=== PATIENT | male | born 1955 | race Caucasian/White ===

== ENCOUNTER → 2017-05-25 | Outpatient (CLI) | payer BC ==
[~2017-05-25] MED LIST: ASPIR 8181 MG; NAPROSYN500 MG PO; NORCO 5-325 TA1 EACH PO
== END ==
LOC: M.MRI 13:03
DX: S66.811A Strain of other specified muscles, fascia and tendons at wrist and hand level, right hand, initial encounter (principal); M25.421 Effusion, right elbow; M77.11 Lateral epicondylitis, right elbow; M77.01 Medial epicondylitis, right elbow; M19.021 Primary osteoarthritis, right elbow; W19.XXXA Unspecified fall, initial encounter; Y93.89 Activity, other specified; Y92.89 Other specified places as the place of occurrence of the external cause; Y99.8 Other external cause status

== ENCOUNTER → 2018-03-20 | Outpatient (CLI) | payer BC | LOC: M.MRI 08:03 | DX: M47.896 Other spondylosis, lumbar region (principal) ==

== ENCOUNTER → 2018-04-11 | Outpatient (CLI) | payer BC ==
[~2018-04-11] MED LIST changes: +DAILY VITAMIN1 EAC6 PO; +DOXYCYCLINE 10100 M1 PO; +FISH OIL 1,001000 M2 PO; +MAGOX 400400 MG PO; +PROBIOTIC1 EAC1 PO
--- NOTE | ~2018-04-11 | PAINCON ---
[address] [address] PAIN MANAGEMENT CONSULTATION Name: YULISA AGGARWAL Room: [facility] BooneHarshaKristinHarsha#: [id number] Admission: 04/11/18 Attend Phys: Ameya Workman MD Discharge: Date of : 55 Report #: [id number] THIS REPORT FOR: //name// CC: Lamin Workman DATE OF SERVICE: 04/11/2018 HISTORY: The patient is a 62-year-old white male who has been referred to the pain clinic for evaluation of back and leg pain. He has had some problems with his back and neck in the past. Pain has been problematic since 2016. He does have a form. He continues to work on his form. In 2008, he was suffering from cervical problems. As a result of cervical myelopathy, he underwent a cervical laminectomy. The patient still has problems with urination as a result of that incident. At this juncture, he is having pain that involves his low back, hips, thighs and continues to radiate down into his back. He finds the heating pads have been helpful. He has tried [id number] nonsteroidal anti-inflammatory medications. He found upon use of opioid medications and states he "does not want to go down that road." Notes his pain is worse when he is standing, bending and increases as time goes on. Notes the pain improves when he is resting. Describes his pain as continuous, burning, aching, stabbing and rates it as a 5/10 today. As a result of the chronic problem from cervical myelopathy. He continues to straight cath himself. His bladder function never returned. ALLERGIES: No known drug allergies. MEDICATIONS: Doxycycline 100 mg b.i.d., taking this for parasite, aspirin 81 mg, multivitamin, probiotic with lactobacillus, and multivitamin. PAST MEDICAL HISTORY: Heart disease, had septal defect as a child. Still has a slight heart murmur, cervical myelopathy with continued problems with micturition required straight cath. PAST SURGICAL HISTORY: Appendectomy in 1997. Bunionectomy 2006, hernia repair 2008, cervical laminectomy in 2008, torn right tendon after a fall from the tractor. 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 REVIEW OF SYSTEMS: Generally good health, fatigue and weakness, wears glasses, notes about movement changes, difficulty with micturition, musculoskeletal and joint pain with stiffness, weakness of the muscles and joints with cramping in the back area, numbness and tingling [place] [address] PAIN MANAGEMENT CONSULTATION Name: YULISA AGGARWAL Room: [facility]#: [id number] Admission: 04/11/18 Attend Phys: Ameya Workman MD Discharge: Date of : 55 Report #: [id number] LABORATORY DATA: 1. MRI of the lumbar spine dated 08/19/2008. There is a congenitally narrowed lumbar spinal canal. There is moderate degenerative disk and mild degenerative facet joint changes throughout the lumbar spine. There is mild disk bulging noted particularly at L1-L2, L2-L3 and L3-L4. 2. No evidence for spondylolysis. 3. AP diameter of the lumbar spinal canal 10 mm at L1-L2, 9 mm at L2-L3, 8 mm at L3-L4, 10 mm at L4-L5 and 11 mm of L5-S1. There is also marked foraminal stenosis bilaterally. This appears most marked on the right side at L3-L4. MRI of the lumbar spine dated 03/20/2018 at L3-L4, there is moderate to severe disk desiccation and broad-based posterior disk bulge with narrowing of the thecal sac to 8.5 mm. There is moderate to severe/severe bilateral facet arthrosis and spurring resulting in right greater than left subarticular zone stenosis. There is foraminal disk bulging and facet spurring resulting in moderate to severe/severe right neural foraminal stenosis. Effacement of the exiting L3 nerve root. There is moderate medial left neural foraminal stenosis with mild effacement of the exiting left L3 nerve root. 4. L4-L5, there is severe disk desiccation with broad-based posterior disk bulge and effacement, and indents the ventral thecal sac. There is narrowing of the thecal sac to 6.5 mm consistent with severe thecal sac stenosis. There is severe bilateral subarticular zone stenosis due to severe bilateral facet arthrosis and spurring. There is no significant thickening of the ligamentum flavum. There is foraminal disk bulging and facet spurring resulting in [id number] right and severe medial left neural foraminal stenosis with effacement of the exiting L4 nerve root. At L5-S1, there is mild disk desiccation with mild diffuse disk bulge, which approaches the descending S1 nerve without evidence of impingement or displacement. PAIN CLINIC ASSESSMENT/PQRS: 1. History of osteoarthritis. The patient has some arthritic changes in his neck as well as the low back area. He has not been treated for rheumatoid arthritis. 2. Height 5 feet 9 inches, weight 183 pounds, BMI is 27. 3. Vital signs: Blood pressure 118/75, heart rate 75, respiratory rate 16, room air saturation 95%, and temperature 98.2. 4. Pain intensity 3-4/10. 5. Fall history: The patient has not fallen in the last 3 months. 6. Blood thinner: The patient is not on a blood thinning medication. 7. Hypertension. The patient is not being treated for hypertension. 8. Opioids greater than 6 weeks. The patient is not on chronic opioid medication. 9. Risk assessment tool, low for opioid use. 10. Functional assessment . 11. Recreational drug use. The patient [place] [address] PAIN MANAGEMENT CONSULTATION Name: YULISA AGGARWAL Room: [facility]#: [id number] Admission: 04/11/18 Attend Phys: Ameya Workman MD Discharge: Date of : 55 Report #: [id number] 12. Tobacco: The patient denies use of tobacco. 13. Alcohol: The patient denies frequent use of alcoholic beverages. PHYSICAL EXAMINATION: GENERAL: The patient is a well-developed, well-nourished white male. Appears his stated age. He is alert and oriented x 3. His affect is appropriate. Speech is fluent. HEENT: Normocephalic, atraumatic. Extraocular eye muscles intact. Sclerae nonicteric. Mucous membranes are moist. 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 Deep tendon reflexes +1 has complained of pain in his low back area with pain radiating down to the posterior portion of his legs and anterior portion of his legs bilaterally. Reyes's sign is negative. Anterior and posterior spring tests are negative. NECK: Supple. Midline trachea. Normal cervical range of motion, previous midline cervical incision well-healed, low back area without significant scoliosis, kyphosis or lordosis. Sensation grossly intact to light touch, pinprick, proprioception in upper and lower extremities. IMPRESSION: 1. Low back pain with radiation down into the anterior as well as posterior portion of the leg with history of spinal stenosis. 2. History of cervical myelopathy in the past with continued difficulty with micturition, requires straight cathing. 3. Lumbar stenosis. 4. Lumbar radiculopathy. 5. Lumbar spondylosis. 6. Degeneration of lumbar intervertebral disk. RECOMMENDATIONS: We discussed treatment options with the patient. Risks and benefits of an epidural steroid injection were discussed. Possible complications of the procedure, which could include but are not limited to infection, worsening of pain, no improvement in pain, bleeding, paralysis were discussed. The patient will return to the pain clinic at which time he will then undergo an epidural steroid injection. The patient will undergo the lumbar epidural steroid injections and note their efficacy. He will return to the pain clinic at which time he will consider an epidural steroid injection given he is suffering from severe central stenosis and lateral recess stenosis bilaterally at L4-L5 secondary to a combination of facet arthropathy/ligamentous hypertrophy and broad-based degenerative disk disease. By: [id number]. Crow Workman MD /nt
== END ==
LOC: M.PC 04:42
DX: M47.26 Other spondylosis with radiculopathy, lumbar region (principal); M51.16 Intervertebral disc disorders with radiculopathy, lumbar region; M48.061 Spinal stenosis, lumbar region without neurogenic claudication; M50.01 Cervical disc disorder with myelopathy, high cervical region

== ENCOUNTER → 2018-05-11 | Outpatient (CLI) | payer BC ==
--- NOTE | ~2018-05-11 | PAINCON ---
[address] [address] PAIN MANAGEMENT CONSULTATION Name: YULISA AGGARWAL Room: [facility] PaoloNora#: [id number] Admission: 05/11/18 Attend Phys: Ameya Workman MD Discharge: Date of : 55 Report #: [id number] THIS REPORT FOR: //name// CC: Lamin Workman DATE OF SERVICE: 05/11/2018 CHIEF COMPLAINT: Here for epidural injection. HISTORY: The patient is a 62-year-old gentleman who has been seen in the Pain Clinic. He has a history of low back pain with pain radiating down into his legs. He has been found to have spinal stenosis. He notes that he is having pain and discomfort, which is radiating down into his legs in the L4-L5 area. He has some low back pain, left hip pain, thigh pain and rates his pain as a 2-3. It increases with activity. Finds that ____ p.r.n. is helpful. He has returned today for an epidural steroid injection. Continues to use a heating pad. Notes that standing can be problematic. Declines use of opioid medications at this point. States he "does not want to go down that road." The patient has returned today for an epidural steroid injection. As you may recall, he has had cervical stenosis and pain in the cervical area in the past. ALLERGIES: No known drug allergies. CURRENT MEDICATIONS: Doxycycline 100 mg b.i.d. Aspirin 81 mg, multivitamins. Probiotic with lactobacillus. PAIN CLINIC ASSESSMENT/PQRS: 1. History of osteoarthritis. The patient has some arthritic changes in his neck as well as his low back area. He has not been treated for rheumatoid arthritis. 2. Height 5 feet 9 inches, weight 184 pounds, BMI is 27.7. 3. Vital signs: Blood pressure 120/48, heart rate 83, respiratory rate 16, room air saturation 96%, temperature 98.5. 4. Pain intensity 2-3/10. 5. Fall history: The patient has not fallen in the last 3 months. 6. Blood thinner. The patient is not on a blood thinning medication. 7. Hypertension. The patient is not being treated for hypertension. 8. Opioid greater than 6 weeks. The patient is not on an opioid medication. 9. Risk assessment tool, low for opioid use. 10. Functional assessment tool . 11. Recreational use. The patient denies use of recreational drugs. 12. Tobacco: The patient denies use of tobacco. 13. Alcohol: The patient denies use of alcoholic beverages. PHYSICAL EXAMINATION: [place] [address] PAIN MANAGEMENT CONSULTATION Name: YULISA AGGARWAL Room: [facility]#: [id number] Admission: 05/11/18 Attend Phys: Ameya Workman MD Discharge: Date of : 55 Report #: [id number] GENERAL: The patient is a well-developed, well-nourished white male, appears his stated age. He is alert and oriented x 3. His affect is appropriate. Speech is slow. HEENT: Normocephalic, atraumatic. Extraocular eye muscles intact. Sclerae nonicteric. Mucous membranes are moist. NECK: Without adenopathy or JVD. He has good range of motion in the upper extremity. Muscle strength is judged to be 5/5 for the major muscle groups in the upper extremity. The patient is without significant scoliosis, kyphosis or lordosis. Has pain and discomfort in the lower portion of his back with pain that radiates down into the L4-L5 distribution on the left as well as in the right. IMPRESSION: 1. Spinal stenosis with narrowing of the thecal sac to 6.5 mm consistent with severe thecal sac stenosis at L4-L5. 2. History of cervical myelopathy in the past with continued difficulty with micturition. The patient still required straight cathing. 3. Lumbar stenosis. 4. Lumbar radiculopathy. 5. Lumbar spondylosis. 6. Degenerative lumbar intervertebral disk. RECOMMENDATIONS: We discussed treatment options with the patient. Risks and benefits of an epidural steroid injection were again reviewed. They include but are not limited to infection, worsening of pain, no improvement in pain, the patient elects to proceed. PROCEDURE NOTE: The patient was taken to the procedure area. He was assisted in getting on the examination table. His back was sterilely prepped with a Betadine solution. A 0.25% bupivacaine was infiltrated using a 21-gauge needle at the L4-L5 interspace using a midline approach. A 17-gauge Tuohy with loss of resistance technique was used to gain access to the epidural space. There was no CSF, heme or paresthesia. A total of 80 mg Depo-Medrol, 40 mg of triamcinolone and 2 mL of 0.25% bupivacaine was injected. The patient tolerated the procedure well. There were no complications. We would like to thank you for letting us participate in his care. We hope he continues to improve. By: [id number]. Crow Workman MD /hemant
== END | disposition home or self-care (01) ==
LOC: M.PC 08:30
DX: M51.16 Intervertebral disc disorders with radiculopathy, lumbar region (principal); M47.26 Other spondylosis with radiculopathy, lumbar region; M48.061 Spinal stenosis, lumbar region without neurogenic claudication; G89.29 Other chronic pain; Z98.890 Other specified postprocedural states; Z79.82 Long term (current) use of aspirin; Z87.440 Personal history of urinary (tract) infections

== ENCOUNTER → 2018-06-15 | Outpatient (CLI) | payer BC ==
--- NOTE | 2018-06-20 09:15 | PAINCON ---
[address] [address] PAIN MANAGEMENT CONSULTATION Name: YULISA AGGARWAL Room: [facility] BooneHarshaKristinHarsha#: [id number] Admission: 06/15/18 Attend Phys: Ameya Workman MD Discharge: Date of : 55 Report #: [id number] THIS REPORT FOR: //name// CC: Lamin Workman DATE OF SERVICE: 06/15/2018 CHIEF COMPLAINT: Here for epidural injection. HISTORY: The patient is a 62-year-old gentleman who has been followed in the pain clinic. He has pain and discomfort in his low back as well as down into his hips and thigh. Notes that the pain radiates down into the left hip area. As you may recall, he did have some problems with myelopathy. Continues to self cath as a result of this problem, which was about 10 years ago. He is having pain that is radiating down into his low back in the L4-L5 dermatomal distribution. He has gleaned greater than 50% improvement after the last injection. He would like to proceed with another injection today. Has noted no changes in his bowel or bladder function. Again, continues to straight cath as a result of problems approximately 10 years ago. He did have surgery to help correct the procedure, but continues to have problems with micturition. ALLERGIES: No known drug allergies. CURRENT MEDICATIONS: Doxycycline 10 mg b.i.d., aspirin 81 mg, multivitamins, probiotic with lactobacillus. PAIN CLINIC ASSESSMENT/PQRS: 1. History of osteoarthritis: The patient does have some arthritic changes in his neck as well as in his low back area. He has not been treated for rheumatoid arthritis. 2. Height 5 feet 9 inches, weight 182 pounds, BMI is 27. 3. Vital signs: Blood pressure 129/79, heart rate 74, respiratory rate 16, room air saturation 95%, temperature 98.1. 4. Pain intensity 2/10. 5. Fall history: The patient has not fallen in the last 3 months. 6. Blood thinner: The patient is not on a blood thinning medication. 7. Hypertension: The patient is not being treated for hypertension. 8. Opioid greater than 6 weeks: The patient is not being treated for opioid medication. 9. Risk assessment tool, low for opioid use. 10. Functional assessment tool is . 11. Recreational drug use. The patient denies use of recreational drugs. 12. Tobacco: The patient denies use of tobacco. 13. Alcohol: The patient [place] [address] PAIN MANAGEMENT CONSULTATION Name: YULISA AGGARWAL Room: [facility]#: [id number] Admission: 06/15/18 Attend Phys: Ameya Workman MD Discharge: Date of : 55 Report #: [id number] PHYSICAL EXAMINATION: GENERAL: The patient is a well-developed, well-nourished white male. Appears his stated age. He is alert and oriented x 3. His affect is appropriate. Speech is slow. HEENT: Normocephalic, atraumatic. Extraocular eye muscles intact. Sclerae nonicteric. Mucous membranes are moist. NECK: Without adenopathy or JVD. The patient has good range of motion of the upper extremities. Muscle strength is judged to be 5/5 for the major muscle groups in the upper extremities. The patient is without significant scoliosis, kyphosis or lordosis. The patient has some pain and discomfort in the L4-L5 dermatomal distribution with pain that is radiating down in the left as well as the right portion. IMPRESSION: 1. Spinal stenosis with narrowing of the thecal sac to 6.5 mm and consistent with severe thecal sac stenosis at L4-L5. 2. History of cervical myelopathy in the past with continued difficulty with micturition. The patient is to continue straight catheterizing. 3. Lumbar stenosis. 4. Lumbar radiculopathy. 5. Lumbar spondylosis. 6. Degenerative lumbar intervertebral disk. RECOMMENDATIONS: We discussed treatment options with the patient. Risks and benefits of an epidural steroid injection were again reviewed. Possible complications of the procedure were discussed. They could include but are not limited to infection, worsening of pain, no improvement in pain, bleeding, nerve damage, muscle paralysis. The patient elects to proceed. PROCEDURE NOTE: The patient was taken to the procedure area. A pillow was placed under his abdomen to bolster and improve positioning. Fluoroscopy using anterior, posterior as well as lateral viewing were implemented. A 17-gauge Tuohy with loss of resistance technique was used to gain access to the epidural space. There was no CSF, heme or paresthesia at the L4-L5 interspace. A midline approach was undertaken. After appropriate placement, aspiration was negative. A total of 80 mg Depo-Medrol, 40 mg triamcinolone and 2 mL of 0.25% bupivacaine was slowly injected. The patient did not have pain or discomfort during the duration of the procedure. He remained in the pain clinic for an appropriate amount of time. He will follow up in the future as needed. We would like to thank you for letting us participate in his care. We hope he continues to improve. <ELECTRONICALLY SIGNED> By: Ameya Workman MD 06/20/18 0915 [id number]. MD KEKE Mendez
== END | disposition home or self-care (01) ==
LOC: M.PC 05:25
DX: M51.16 Intervertebral disc disorders with radiculopathy, lumbar region (principal); M48.061 Spinal stenosis, lumbar region without neurogenic claudication; M47.26 Other spondylosis with radiculopathy, lumbar region; M19.90 Unspecified osteoarthritis, unspecified site; I10 Essential (primary) hypertension; Z98.890 Other specified postprocedural states; Z79.899 Other long term (current) drug therapy; Z79.82 Long term (current) use of aspirin

== ENCOUNTER → 2018-07-20 | Outpatient (CLI) | payer BC ==
[~2018-07-20] MED LIST changes: +MOBIC15 MG PO
--- NOTE | ~2018-07-20 | PAINCON ---
[address] [address] PAIN MANAGEMENT CONSULTATION Name: YULISA AGGARWAL Room: [facility] BR[facility] PaoloNora#: [id number] Admission: 07/20/18 Attend Phys: Ameya Workman MD Discharge: Date of : 55 Report #: [id number] THIS REPORT FOR: //name// CC: Lamin Workman DATE OF SERVICE: 07/20/2018 CHIEF COMPLAINT: Low back and left hip pain been problematic for years. HISTORY: The patient is a 62-year-old gentleman, who has been followed in the pain clinic because of lumbar radiculopathy. He has had pain, which radiates down into his left hip area. He has returned today indicating that his pain has become more annoying. He has undergone epidural steroid injections in the low back area and noticed that the pain in the L4-L5 area has improved. He would like to proceed with another injection. He is noticing some occasional tingling down into his left leg. He has spoken with Dr. Valerio. He may require surgery in the future. At this juncture, he would like to undergo an epidural steroid injection to help with his pain and discomfort. He feels that Naprosyn is somewhat beneficial. Overall, he has about 50% improvement in his pain with his current regimen. He rates his pain as a 2/10, which is quite annoying. CURRENT MEDICATIONS: Aspirin 81 mg, fish oil 1000 mg, doxycycline 100 mg b.i.d., lactobacillus probiotic, magnesium 400 mg, meloxicam 15 mg, multivitamin formula, and Naprosyn 500 mg p.r.n. b.i.d. when not taking meloxicam. ALLERGIES: No known drug allergies. PAIN CLINIC ASSESSMENT AND PQRS: 1. History of osteoarthritis. The patient does have some arthritic changes in his neck as well as in his low back area. He is not being treated for rheumatoid arthritis. 2. Pain intensity is 2/10. 3. Fall history: The patient has not fallen in the last 3 months. 4. Blood thinner. The patient is not being treated with a blood thinning medication. 5. Hypertension. The patient is not being treated for hypertension. 6. Opiate greater than 6 weeks. The patient is not being treated with opioid medications on a regular basis. 7. Risk assessment tool, low for opioid use. 8. Functional assessment tool, . 9. Recreational drug use. The patient denies use of recreational drugs. 10. Tobacco. The patient denies use of tobacco. 11. Alcohol. The patient denies use of alcoholic beverages. PHYSICAL EXAMINATION: [place] [address] PAIN MANAGEMENT CONSULTATION Name: YULISA AGGARWAL [id number] Admission: 07/20/18 Attend Phys: Ameya Workman MD Discharge: Date of : 55 Report #: [id number] GENERAL: The patient is a well-developed, well-nourished white male. He appears his stated age. He is alert and oriented x 3. His affect is appropriate. Speech is fluent. Height is 5 feet 9 inches, weight is 176 pounds, and BMI is 26. VITAL SIGNS: Blood pressure is 138/82, heart rate is 74, respiratory rate is 16, room air saturation is 95%, and temperature is 98.0. HEENT: Normocephalic, atraumatic. Extraocular eye muscles intact. Sclerae is nonicteric. Mucous membranes are moist. NECK: Without adenopathy or JVD. EXTREMITIES: Upper extremity muscle strength is judged to be 5/5 for the major muscle groups in the upper extremity. The patient is without significant scoliosis, kyphosis, or lordosis. The patient has pain and discomfort, which is radiating down the L4-L5 dermatomal distribution of his left leg. He has noted some discomfort in the right as well. IMPRESSION: 1. History of spinal stenosis with narrowing of the thecal sac to 6 mm and consistent with severe thecal sac stenosis at L4-L5. 2. History of cervical myelopathy in the past with continued difficulty with micturition. The patient continues to straight catheterize himself. 3. Lumbar stenosis. 4. Lumbar radiculopathy. 5. Lumbar spondylosis. 6. Degenerative lumbar intervertebral disk. RECOMMENDATIONS: We have discussed treatment options with the patient. Risks and benefits of an epidural steroid injection were discussed. Possible complications of the procedure were discussed. The patient returned to the pain clinic at which time we will consider an epidural steroid injection. He will return after his carrier give him precertification. We would like to thank you for letting us to participate in his care. We hope he continues to improve. RECOMMENDATIONS: We discussed treatment options with the patient. Risks and benefits of an epidural steroid injection were discussed. They include but are not limited to infection, worsening of pain, no improvement. He elected to proceed. PROCEDURE NOTE: The patient was taken to the procedure area. He was assisted in getting on the examination table. His back was sterilely prepped with a Betadine solution. It was allowed to dry. The anterior, posterior as well as lateral viewing are implemented using fluoroscopy. At the L4-L5 interspace, 0.25% bupivacaine was infiltrated using a 25-gauge needle. A left paramedian approach was undertaken. A 17-gauge Tuohy with loss of resistance technique was used to gain access to the epidural space. There was no CSF, heme or [facility] [address] [place] [address] PAIN MANAGEMENT CONSULTATION Name: YULISA AGGARWAL Room: [facility]#: [id number] Admission: 07/20/18 Attend Phys: Ameya Workman MD Discharge: Date of : 55 Report #: [id number] paresthesia. A total of 80 mg of Depo-Medrol, 40 mg of triamcinolone and 2 mL of 0.25% bupivacaine was injected. The patient tolerated the procedure well. There were no complications. We would like to thank you for letting us participate in his care. We hope he continues to improve. By: [id number]. Crow Workman MD /CALEB
--- NOTE | ~2018-07-20 | PROC ---
[address] [address] PROCEDURE REPORT Name: YULISA AGGARWAL Room: [facility] DEONTE SharpHarsha#: [id number] Admission: 07/20/18 Attend Phys: Ameya Workman MD Discharge: Date of : 55 Report #: [id number] THIS REPORT FOR: //name// CC: Lamin Workman DATE OF SERVICE: 07/20/2018 ADDENDUM RECOMMENDATIONS: We discussed treatment options with the patient. Risks and benefits of an epidural steroid injection were discussed. They include but are not limited to infection, worsening of pain, no improvement. He elected to proceed. PROCEDURE NOTE: The patient was taken to the procedure area. He was assisted in getting on the examination table. His back was sterilely prepped with a Betadine solution. It was allowed to dry. The anterior, posterior as well as lateral viewing are implemented using fluoroscopy. At the L4-L5 interspace, 0.25% bupivacaine was infiltrated using a 25-gauge needle. A left paramedian approach was undertaken. A 17-gauge Tuohy with loss of resistance technique was used to gain access to the epidural space. There was no CSF, heme or paresthesia. A total of 80 mg of Depo-Medrol, 40 mg of triamcinolone and 2 mL of 0.25% bupivacaine was injected. The patient tolerated the procedure well. There were no complications. We would like to thank you for letting us participate in his care. We hope he continues to improve. By: [id number]. Crow Workman MD /CALEB
== END | disposition home or self-care (01) ==
LOC: M.PC 04:45
DX: M51.16 Intervertebral disc disorders with radiculopathy, lumbar region (principal); M47.26 Other spondylosis with radiculopathy, lumbar region; M48.061 Spinal stenosis, lumbar region without neurogenic claudication; Z79.82 Long term (current) use of aspirin; Z79.899 Other long term (current) drug therapy; N39.0 Urinary tract infection, site not specified

== ENCOUNTER 2019-09-16 11:23 | Emergency (ER) | payer OTHER ==
[~2019-09-16] VITALS: Ht 175.3 cm; Wt 83.9 kg
[2019-09-16 11:52] LABS: ABSOLUTE EOSINOPHILS 0.2 thou/uL (0.0-0.7); ABSOLUTE LYMPHOCYTES 1.9 thou/uL (0.8-5.3); ABSOLUTE MONOCYTES 0.8 thou/uL (0.0-1.2); ABSOLUTE NEUTROPHILS 4.8 thou/uL (1.6-8.1); BASOPHILS 0.6 %; EOSINOPHILS 3.1 %; HEMATOCRIT 45.6 % (42.0-52.0); HEMOGLOBIN 15.7 gm/dL (14.0-18.0); LYMPHOCYTES 24.2 %; MCH 31.8 pg (26.0-34.0); MCHC 34.4 g/dL (28.0-37.0); MCV 92.3 fL (80.0-100.0); MPV 7.6 fl. (7.2-11.1); NUCLEATED RBCS 0 /100WBC; PLATELET COUNT* 285 thou/uL (150-400); POLYS 62.1 %; RBC 4.94 mil/uL (4.50-6.00); RDW-CV 13.2 % (10.5-14.5); WBC 7.8 thou/uL (4.0-11.0)
[2019-09-16 11:56] LABS: CALCIUM 8.5 mg/dL (8.5-10.1); CREATININE 1.1 mg/dL (0.6-1.3); POTASSIUM 3.8 mmol/L (3.5-5.1)
[2019-09-16 12:00] LABS: ALBUMIN 3.8 g/dL (3.4-5.0); TOTAL BILIRUBIN 0.5 mg/dL (<0.1-1.0); TOTAL PROTEIN 7.3 g/dL (6.4-8.2)
[2019-09-16 12:04] LABS: APTT 31.7 Seconds (25.0-31.3); PROTIME 10.3 Seconds (9.20-11.50)
[2019-09-16 14:22] VITALS: BP 128/76
--- NOTE | 2019-09-17 17:03 | EKG ---
[place] [address] ELECTROCARDIOGRAM REPORT Name: YULISA AGGARWAL Room: [facility]#: [id number] Admission: 09/16/19 Attend Phys: Discharge: 09/16/19 Date of : 55 Date of Service: 09/16/19 1124 Report #: [id number] THIS REPORT FOR: //name// [facility] ED Test Date: 2019-09-16 Test Time: 11:24:43 Pat Name: YULISA AGGARWAL Department: Room: Gender: Delivery Coordinator: : 1955 Requested By: Nissa Miles Order Number: [id number] MD: Tyson Ventura Measurements Intervals [place] Rate: 80 P: 73 OR: 167 QRS: 13 QRSD: 94 T: 100 QT: 404 QTc: 466 Interpretive Statements Sinus rhythm Atrial premature complex Borderline repolarization abnormality Compared to ECG 11/15/2015 07:10:58 Atrial premature complex(es) now present Electronically Signed On 09-17-2019 17:01:33 CDT by Tyson Ventura [email or web address] <ELECTRONICALLY SIGNED> By: Tyson Ventura MD, FACC 09/17/19 1701 1124 1124 Tyson Ventura MD, [facility] /EPI
== END 2019-09-16 14:23 | disposition home or self-care (01) ==
LOC: M.ERS 11:23
PROVIDERS: Personal Emergency Response Attendant
DX: R07.89 Other chest pain (principal); F17.210 Nicotine dependence, cigarettes, uncomplicated

== ENCOUNTER → 2020-07-21 | Outpatient (CLI) | payer OTHER ==
[2020-07-21 09:02] LABS: ALBUMIN 3.7 g/dL (3.4-5.0); ALKALINE PHOSPHATASE 61 U/L (46-116); CHOLESTEROL 249 mg/dL (<200); DIRECT BILIRUBIN 0.1 mg/dL (<0.1-0.3); HDL CHOLESTEROL 60 mg/dL (>40); LDL CHOLESTEROL 179 mg/dL (<100); SGOT 25 U/L (15-37); SGPT 34 U/L (30-65); TC:HDL 4.2 Ratio (Not establshd); TOTAL BILIRUBIN 0.3 mg/dL (<0.1-1.0); TOTAL PROTEIN 7.2 g/dL (6.4-8.2); TRIGLYCERIDE 53 mg/dL (<150); VLDL 11 mg/dL (<40)
[2020-07-21 09:03] LABS: SERUM ASSESSMENT Clear
== END ==
LOC: M.LAB 08:35
PROVIDERS: ATTEND Nurse Practitioner
DX: E78.5 Hyperlipidemia, unspecified (principal)

== ENCOUNTER → 2021-01-30 | Outpatient (CLI) | payer OTHER | LOC: M.CT 01-26 10:44 | PROVIDERS: ATTEND Neurological Surgery | DX: M47.816 Spondylosis without myelopathy or radiculopathy, lumbar region (principal); M51.36 Other intervertebral disc degeneration, lumbar region; M48.061 Spinal stenosis, lumbar region without neurogenic claudication; M51.26 Other intervertebral disc displacement, lumbar region ==

== ENCOUNTER → 2021-02-20 | Outpatient (CLI) | payer OTHER | LOC: M.LAB 14:52 | PROVIDERS: ATTEND Internal Medicine Cardiovascular Disease | DX: R74.8 Abnormal levels of other serum enzymes (principal) ==

== ENCOUNTER → 2021-03-16 | Outpatient (CLI) | payer OTHER ==
[2021-03-16 08:37] LABS: CHOLESTEROL 151 mg/dL (<200); HDL CHOLESTEROL 67 mg/dL (>40); LDL CHOLESTEROL 73 mg/dL (<100); TC:HDL 2.3 Ratio (Not establshd); TRIGLYCERIDE 59 mg/dL (<150); VLDL 12 mg/dL (<40)
[2021-03-16 08:40] LABS: SERUM ASSESSMENT Clear
== END ==
LOC: M.LAB 08:08
PROVIDERS: ATTEND Internal Medicine Cardiovascular Disease
DX: I25.119 Atherosclerotic heart disease of native coronary artery with unspecified angina pectoris (principal); E78.00 Pure hypercholesterolemia, unspecified; R74.8 Abnormal levels of other serum enzymes

== ENCOUNTER → 2021-03-23 | Outpatient (CLI) | payer OTHER ==
[~2021-03-23] VITALS: Ht 175.3 cm; Wt 82.1 kg
--- NOTE | 2021-03-23 10:44 | 2DMMODE ---
[place] [address] 2 D/M-MODE ECHOCARDIOGRAM Name: YULISA AGGARWAL Room: [facility]#: [id number] Admission: 03/23/21 Attend Phys: Tyson Ventura, Discharge: Date of : 55 Date of Service: 03/23/21 1043 Report #: [id number] THIS REPORT FOR: cc: Lamin Vyas MD, Anthony MD Blick,Kaz Deras MD [facility] ~ APPROVED REPORT Study performed: 03/23/2021 11:02:30 EXAM: Comprehensive 2D, Doppler, and color-flow Echocardiogram Patient Location: Out-Patient BSA: 1.96 HR: 76 bpm BP: 128/84 mmHg Other Information Study Quality: Good Indications Chest Pain 2D Dimensions IVSd: 11.17 (7-11mm) LVOT Diam: 21.76 (18-24mm) LVDd: 43.92 mm PWd: 10.38 (7-11mm) Ascending Ao: 35.33 (22-36mm) LVDs: 24.60 (25-40mm) Aortic Root: 35.23 mm Volumes Left Atrial Volume (Systole) LA ESV Index: 16.20 mL/m2 Aortic Valve AoV Peak Max.: 1.14 m/s AO Peak Gr.: 5.22 mmHg LVOT Max P.35 mmHg AO Mean Gr.: 2.61 mmHg LVOT Mean P.71 mmHg LVOT Max V: 1.04 m/s AO V2 VTI: 24.68 cm LVOT Mean V: 0.58 m/s GLENNA (VTI): 3.80 cm2 LVOT V1 VTI: 25.25 cm Mitral Valve E/A Ratio: 0.70 [place] [address] 2 D/M-MODE ECHOCARDIOGRAM Name: YULISA AGGARWAL Room: [facility] DEONTE Nolan#: [id number] Admission: 03/23/21 Attend Phys: Tyson Ventura, Discharge: Date of : 55 Date of Service: 03/23/21 1043 Report #: [id number] MV Decel. Time: 285.93 ms MV E Max Max.: 0.51 m/s MV PHT: 82.92 ms MVA (PHT): 2.65 cm2 TDI E/Lateral E': 3.40 E/Medial E': 4.25 Medial E' Max.: 0.12 m/s Lateral E' Max.: 0.15 m/s Pulmonary Valve PV Peak Max.: 1.14 m/s PV Peak Gr.: 5.20 mmHg Left Ventricle The left ventricle is normal size. There is normal LV segmental wall motion. There is normal left ventricular wall thickness. Left ventricular systolic function is normal. The left ventricular ejection fraction is within the normal range. LVEF is 55-60%. Grade I - abnormal relaxation pattern. Right Ventricle The right ventricle is normal size. The right ventricular systolic function is normal. Atria The left atrium size is normal. The right atrium size is normal. Aortic Valve The aortic valve is normal in structure. No aortic regurgitation is present. There is no aortic valvular stenosis. Mitral Valve The mitral valve is normal in structure. There is trace mitral valve regurgitation noted. No evidence of mitral valve stenosis. Tricuspid Valve The tricuspid valve is normal in structure. There is trace tricuspid valve regurgitation noted. Pulmonic Valve The pulmonary valve is normal in structure. There is no pulmonic valvular regurgitation. Great Vessels The aortic root is normal in size. IVC [place] [address] 2 D/M-MODE ECHOCARDIOGRAM Name: YULISA AGGARWAL Room: [facility]#: [id number] Admission: 03/23/21 Attend Phys: Tyson Ventura, Discharge: Date of : 55 Date of Service: 03/23/21 1043 Report #: [id number] collapses >50% with inspiration. Pericardium There is no pericardial effusion. <Conclusion> Left ventricular systolic function is normal. The left ventricular ejection fraction is within the normal range. <ELECTRONICALLY SIGNED> By: Kaz Oglesby MD, [facility] 03/23/21 1043 42 42 Kaz Oglesby MD, [facility] /INF
--- NOTE | 2021-03-24 17:51 | CARDNUC ---
[place] [address] CARDIAC NUCLEAR IMAGING REPORT Name: AGGARWAL,YULISA SUSHILA Room: [facility]#: [id number] Admission: 03/23/21 Attend Phys: Tyson Ventura, Discharge: Date of : 55 Date of Service: 03/24/21 1751 Report #: [id number] THIS REPORT FOR: cc: Lamin Vyas MD, Anthony MD Biggs, F. Douglas MD [facility] ~ APPROVED REPORT Imaging Protocol: Rest Tc-99m/Stress Tc-99m 1 day Study performed: 03/23/2021 08:30:00 Indication: High calcium score Patient Location: Out-Patient Stress Nurse: MACHELLE Sheets Tech:CARLOS A Khoury Ht: 5 ft 9 in Wt: 181 lbs BSA: 1.98 m2 BMI: 26.72 Medical History Medical History: CAD non obstructive, Hyperlipidemia,vsd Medications: asa-81, amlodipine Allergies: No known drug allergies Cardiac Risk Factors: Age, Hyperlipidemia, FHX of CAD, Current Smoker Exercise History: Physically active Resting Data Rest SPECT myocardial perfusion imaging was performed in supine position 30 minutes following the intravenous injection of 12.0 mCi of Tc-99m Sestamibi. Time of rest injection: 849 Date: 03/23/2021 The images were gated to evaluate regional wall motion and calculate left ventricular ejection fraction. Administration Route: IV Administration Site: [facility] Pharmacologic Stress Pharmacologic stress test was performed by injecting Regadenoson 0.4 mg IV push over 10-15 seconds immediately followed by the intravenous injection of 36.0 mCi of Tc-99m Sestamibi. Time of stress injection: 954 Date: 03/23/2021 Administration Route: IV Administration Site: [place] [address] CARDIAC NUCLEAR IMAGING REPORT Name: YULISA AGGARWAL Room: [facility] DEONTE Nolan#: [id number] Admission: 03/23/21 Attend Phys: Tyson Ventura, Discharge: Date of : 55 Date of Service: 03/24/21 1751 Report #: [id number] Gated Stress SPECT was performed 40 minutes after stress injection. The images were gated to evaluate regional wall motion and calculate left ventricular ejection fraction. Prone imaging was performed. Stress Test Details Stress Test: Pharmacologic stress testing performed using 0.4 mg of regadenoson per 5 mL given IV over 10 seconds. Reason for pharmacologic stress test: vsd. HR Max Heart Rate (APMHR): 155 bpm Resting HR: 80 bpm Target HR (85% APMHR): 131 bpm Max HR Achieved: 103 bpm % of APMHR: 66 Recovery HR: 90 bpm HR response to stress: Normal HR response to stress BP Resting BP: 128/89 mmHg Max BP: 170/72 mmHg Recovery BP: 150/91 mmHg BP response to stress: Normal blood pressure response to stress. ECG Resting ECG: Sinus Rhythm, normal EKG Stress ECG: Sinus Rhythm, normal EKG ST Change: None Arrhythmia: None Recovery ECG: Sinus Rhythm, normal EKG Recovery ST Change: None Recovery Arrhythmia: None Clinical Reason for Termination: Completed protocol Stress Symptoms: None Stress ECG Conclusion Clinical: Non-ischemic Non-diagnostic pharmacologic Lexiscan EKG stress due to failure to attain target HR. Study Quality Study: Good Artifact: Mild [place] [address] CARDIAC NUCLEAR IMAGING REPORT Name: YULISA AGGARWAL Room: [facility]#: [id number] Admission: 03/23/21 Attend Phys: Tyson Ventura, Discharge: Date of : 55 Date of Service: 03/24/21 1751 Report #: [id number] Study Data At rest, the left ventricular ejection fraction was 61%.. SSS: 3 SRS: 3 SDS: 0 TID = 0.98. Perfusion The resting study demonstrated a moderate size moderate intensity inferior defect. There was also a small mild apical defect and a small mild septal defect. The post stress images demonstrate a small mild inferior defect and a very small very mild apical defect. Prone images were obtained and were normal. There were no defects seen. There therefore no reversible defects and no evidence of myocardial ischemia Images were reviewed using CHEQROOMis. Wall Motion Normal left ventricular wall motion. Nuclear Conclusion ECG Findings: non-diagnostic Clinical Findings: negative for ischemia Nuclear Findings: negative for ischemia Exercise Capacity: not assessed Left Ventricular Function: normal Risk Study: low Normal study. No scintigraphic evidence for myocardial ischemia or scar. <Conclusion> Clinical: Non-ischemic Non-diagnostic pharmacologic Lexiscan EKG stress due to failure to attain target HR. <ELECTRONICALLY SIGNED> By: Yoselin Lyles MD, FACC 03/24/211750 50 50 Yoselin Lyles MD, FACC /INF
== END ==
LOC: M.CRD 02-24 15:05
PROVIDERS: ATTEND Internal Medicine Cardiovascular Disease
DX: I25.119 Atherosclerotic heart disease of native coronary artery with unspecified angina pectoris (principal)

== ENCOUNTER 2021-05-28 10:30 | Emergency (ER) | payer OTHER ==
[~2021-05-28] VITALS: Ht 175.3 cm; Wt 81.7 kg
[2021-05-28 10:43] VITALS: BP 154/103
[2021-05-28] MEDS ORDERED: CLOBETASOL 0.0560 GM TOP (10:48)
[2021-05-28] MEDS ORDERED: REPATHA SY140 MG/1 M SUBQ (10:48)
== END 2021-05-28 11:32 | disposition left against medical advice (07) ==
LOC: M.ERS 10:30
DX: T83.091A Other mechanical complication of indwelling urethral catheter, initial encounter (principal); R33.9 Retention of urine, unspecified; Z53.21 Procedure and treatment not carried out due to patient leaving prior to being seen by health care provider; Z98.890 Other specified postprocedural states; Z90.11 Acquired absence of right breast and nipple; Z90.49 Acquired absence of other specified parts of digestive tract